=== PATIENT | female | born 1955 | race Caucasian/White ===

== ENCOUNTER 2021-10-13 15:41 | Emergency (ER) | payer OTHER ==
[~2021-10-13] VITALS: Ht 157.5 cm; Wt 69.1 kg
[~2021-10-13 15:41] MED LIST: [UNRECOGNIZED DRUG - REMARK] OU; arthritis med PO; cholesterol med PO; htn med PO
[2021-10-13 16:02] VITALS: BP 176/72
[2021-10-13 19:06] LABS: COVID AG,FIA SOURCE NASOPHARYNGEAL
== END 2021-10-13 22:15 | disposition home or self-care (01) ==
LOC: EMS 16:21
DX: U07.1 COVID-19 (principal); I10 Essential (primary) hypertension; E78.00 Pure hypercholesterolemia, unspecified
CPT/HCPCS: 71045; 87426; 93005; 99285; U0003